=== PATIENT | female | born 1970 | race American Indian/Alaskan Native ===

== ENCOUNTER 2019-08-21 20:20 | Emergency (ER) | payer OTHER ==
--- NOTE | 2019-08-21 20:46 | Event Note ---
ED Screening Note Date of service: 08/21/19 Time: 20:42 ED Screening Note: 49 y/o female comes piece of wood in right idex finger. Has IUD This initial assessment/diagnostic orders/clinical plan/treatment(s) is/are subject to change based on patients health status, clinical progression and re- assessment by fellow clinical providers in the ED. Further treatment and workup at subsequent clinical providers discretion. Patient/guardian urged not to elope from the ED as their condition may be serious if not clinically assessed and managed. Initial orders include:
--- NOTE | 2019-08-21 21:13 | XRay Report ---
Right fingers 3 views INDICATION: Finger pain. IMPRESSION: No fracture or subluxation is identified. No dislocation. Signer Name: Jose Maria Lyles MD Signed: 08/21/2019 9:08 PM Workstation Name: [id number]
[2019-08-21] MEDS ORDERED: TETANUS,DIPH,PERTUSS(ACELL) VACCINE 0.5 ML SYRINGE IM ONE (21:35)
[2019-08-21] MEDS ORDERED: IBUPROFEN 600 MG TAB PO ONE (21:35)
[2019-08-21] MEDS ORDERED: LIDOCAINE-MPF (1%) 10 MG/1 ML VIAL 5 ML INFILTRATI ONE (21:35)
--- NOTE | 2019-08-21 22:58 | Emergency Department Report ---
ED General Adult HPI - General Chief complaint: Skin/Abscess/Foreign Body Stated complaint: LARGE SPLINTER RIGHT INDEX FINGER Time Seen by Provider: 08/21/19 20:40 Source: patient Mode of arrival: Ambulatory Limitations: No Limitations - History of Present Illness Initial comments: Patient is a 49-year-old -[place] female with no past medical history except GERD who presents to the ED with complaint of acute onset persistent painful right distal index finger due to a puncture wound and a foreign body embedded in the distal right index finger for the last 1 hour after pieces of a wooden chair she was sanding puncture the right index finger and a piece of the wooden chip got stuck and embedded in the distal right index finger on palmar side. Patient admits that she is not updated her tetanus vaccinations. Patient denies numbness or tingling and weakness of right index finger. MD Complaint: foreign body in finger; puncture wound -: Sudden, hour(s) (1) Location: right, upper extremity (right index finger) Radiation: non-radiation Severity scale (0 -10): 5 Quality: aching, sharp, constant Consistency: constant Improves with: none Worsens with: none Associated Symptoms: denies other symptoms. denies: confusion, chest pain, diaphoresis, fever/chills, headaches, loss of appetite, seizure, syncope, weakness, other Treatments Prior to Arrival: none - Related Data Previous Rx's Medication Instructions Recorded Last Taken Type Sulfamethoxazole/Trimethoprim 1 each PO Q12H #20 tablet 08/21/19 Unknown Rx [Bactrim DS TAB] Allergies Allergy/AdvReac Type Severity Reaction Status Date / Time acetaminophen [From Percocet] AdvReac Nausea Verified 08/21/19 20:43 atropine [From ] AdvReac Itching Verified 08/21/19 20:43 belladonna alkaloids AdvReac Itching Verified 08/21/19 20:43 hyoscyamine [From ] AdvReac Itching Verified 08/21/19 20:43 oxycodone [From Percocet] AdvReac Nausea Verified 08/21/19 20:43 phenobarbital [From ] AdvReac Itching Verified 08/21/19 20:43 scopolamine [From ] AdvReac Itching Verified 08/21/19 20:43 ED Review of Systems ROS: Stated complaint: LARGE SPLINTER RIGHT INDEX FINGER Other details as noted in HPI Constitutional: denies: chills, fever Eyes: denies: eye pain, eye discharge, vision change ENT: denies: ear pain, throat pain Respiratory: denies: cough, shortness of breath, wheezing Cardiovascular: denies: chest pain, palpitations Endocrine: no symptoms reported Gastrointestinal: denies: abdominal pain, nausea, diarrhea Genitourinary: denies: urgency, dysuria, discharge Musculoskeletal: arthralgia (right index finger pain due to puncture wound and foreign body stuck in tissue), myalgia. denies: back pain, joint swelling Skin: other (Right index finger puncture wound with foreign body embedded in tissue). denies: rash, lesions Neurological: denies: headache, weakness, paresthesias Psychiatric: denies: anxiety, depression Hematological/Lymphatic: denies: easy bleeding, easy bruising ED Past Medical Hx - Surgical History Additional Surgical History: jaw - Social History Smoking Status: Never Smoker - Medications Home Medications: Home Medications Medication Instructions Recorded Confirmed Last Taken Type Sulfamethoxazole/Trimethoprim 1 each PO Q12H #20 tablet 08/21/19 Unknown Rx [Bactrim DS TAB] ED Physical Exam - General Limitations: No Limitations General appearance: alert, in no apparent distress - Head Head exam: Present: atraumatic, normocephalic, normal inspection - Eye Eye exam: Present: normal appearance, PERRL, EOMI Pupils: Present: normal accommodation - ENT ENT exam: Present: normal exam, normal orophraynx, mucous membranes moist, TM's normal bilaterally, normal external ear exam - Neck Neck exam: Present: normal inspection, full ROM - Respiratory Respiratory exam: Present: normal lung sounds bilaterally. Absent: respiratory distress, wheezes - Cardiovascular Cardiovascular Exam: Present: regular rate, normal rhythm, normal heart sounds. Absent: systolic murmur, diastolic murmur, rubs, gallop - GI/Abdominal GI/Abdominal exam: Present: soft, normal bowel sounds. Absent: tenderness, guarding - Extremities Exam Extremities exam: Present: normal inspection, full ROM, tenderness (palpable severe distal right index finger tenderness due to a puncture wound with a foreign body embedded in the tissues), normal capillary refill. Absent: pedal edema, joint swelling, calf tenderness - Back Exam Back exam: Present: normal inspection, full ROM. Absent: tenderness, muscle spasm, paraspinal tenderness - Neurological Exam Neurological exam: Present: alert, oriented X3, CN II-XII intact, normal gait, reflexes normal - Psychiatric Psychiatric exam: Present: normal affect, normal mood - Skin Skin exam: Present: warm, dry, intact, normal color, other (distal right index finger puncture wound on the palmar side due to an embedded foreign body). Absent: rash ED Course Vital Signs 08/21/19 22:39 Respiratory 16 Rate - Reevaluation(s) Reevaluation #1: 08/21/19 22:59 This 49-year-old female who presented to the ED with painful distal right index finger after a foreign body puncture and the right index finger on the palmar side and got embedded in the tissues. In the ED, patient is alert and oriented 3 and is not in distress. Patient was treated for pain and also received tetanus booster vaccinations. The right index finger x-ray shows no acute fractures or subluxations. The foreign body was successfully removed from the distal right index finger puncture wound after the right index finger was anesthetized with lidocaine 1% solution. Patient tolerated the procedure well. Patient was discharged home on antibiotics prophylactically and advised to follow-up with her primary care physician in 7-10 days for reevaluation or return to the ED immediately if symptoms get worse. ED Medical Decision Making - Radiology Data Radiology results: report reviewed, image reviewed Right index finger x-ray shows no acute fractures or subluxations. - Medical Decision Making This 49-year-old female who presented to the ED with painful distal right index finger after a foreign body puncture and the right index finger on the palmar side and got embedded in the tissues. In the ED, patient is alert and oriented 3 and is not in distress. Patient was treated for pain and also received tetanus booster vaccinations. The right index finger x-ray shows no acute fractures or subluxations. The foreign body was successfully removed from the distal right index finger puncture wound after the right index finger was anesthetized with lidocaine 1% solution. Patient tolerated the procedure well. Patient was discharged home on antibiotics prophylactically and advised to follow-up with her primary care physician in 7-10 days for reevaluation or return to the ED immediately if symptoms get worse. - Differential Diagnosis puncture wound; foreign body in finger; cellulitis Critical care attestation.: If time is entered above; I have spent that time in minutes in the direct care of this critically ill patient, excluding procedure time. ED Disposition Clinical Impression: Puncture wound of right index finger with foreign body without damage to nail Qualifiers: Encounter type: initial encounter Qualified Code(s): S61.240A - Puncture wound with foreign body of right index finger without damage to nail, initial encounter Disposition: TO HOME OR SELFCARE Is pt being admited?: No Does the pt Need Aspirin: No Condition: Stable Instructions: Puncture Wound (ED), Soft Tissue Foreign Body (ED) Additional Instructions: Take medication with food, drink plenty of fluids and follow-up with your primary care physician in 7-10 days for reevaluation. Return to the ED immediately if symptoms get worse. Prescriptions: Sulfamethoxazole/Trimethoprim [Bactrim DS TAB] 1 each PO Q12H #20 tablet Referrals: PRIMARY CARE, [Primary Care Provider] - 3-5 Days Time of Disposition: 22:54 Print Language: ROMANIAN
[2019-08-21 23:12] VITALS: BP 122/86
== END 2019-08-21 23:13 | disposition home or self-care (01) ==
LOC: ED 20:20
DX: S61.240A Puncture wound with foreign body of right index finger without damage to nail, initial encounter (principal); W45.8XXA Other foreign body or object entering through skin, initial encounter; Y93.89 Activity, other specified; Y92.89 Other specified places as the place of occurrence of the external cause; Y99.8 Other external cause status
CPT/HCPCS: 90471; 90715

== ENCOUNTER 2019-11-21 14:18 | Outpatient (CLI) | payer OTHER | END 2019-11-21 14:19 | disposition home or self-care (01) | LOC: LABHHL 14:18 | PROVIDERS: ATTEND Surgery | DX: N63.23 Unspecified lump in the left breast, lower outer quadrant (principal) | CPT/HCPCS: 88305; 88341; 88342 ==

== ENCOUNTER 2019-12-22 06:13 | Day surgery (SDC) | payer OTHER ==
[~2019-12-22 06:13] MED LIST: ceFAZolin/Water 2 GM/20 ML 2 GM/20 ML SYRINGE IV NR
[2019-12-22] MEDS ORDERED: LACTATED RINGERS 1,000 ML ONE (07:47)
[2019-12-22] MEDS ORDERED: BUPIVACAINE/PF (0.25%) 2.5 MG/ML 30 ML VIAL INFILTRATI ONE ×2 (08:26→09:44)
[2019-12-22] MEDS ORDERED: LIDOCAINE (1%) 10 MG/1 ML VIAL 20 ML MDV ONE (08:26)
[2019-12-22] MEDS ORDERED: KETOROLAC 30 MG/1 ML INJ IV PRN (08:35)
[2019-12-22] MEDS ORDERED: fentaNYL 100 MCG/2 ML INJ IV PRN (08:35)
[2019-12-22] MEDS ORDERED: ONDANSETRON 4 MG/2 ML INJ IV PRN (08:35)
[2019-12-22] MEDS ORDERED: LACTATED RINGERS 1,000 ML IV SCH (09:00)
[2019-12-22] MEDS ORDERED: HYDROmorphone 1 MG/1 ML INJ ONE (09:07)
[2019-12-22] MEDS ORDERED: propofoL 200 MG/20 ML VIAL IV ONE (09:07)
--- NOTE | 2019-12-22 09:07 | Anesthesia Day of Surgery ---
Anesthesia Day of Surgery - Day of Surgery Patient Examined: Yes Patient H&P Reviewed: Yes Patient is NPO: Yes
--- NOTE | 2019-12-22 09:09 | Anesthesia Consultation ---
Anesthesia Consult and Med Hx Date of service: 12/22/19 (h/o jaw surgery) - Airway Anesthetic Teeth Evaluation: Good ROM Head & Neck: Adequate Mental/Hyoid Distance: Adequate Mallampati Class: Class III Intubation Access Assessment: Possibly Difficult - Pulmonary Exam CTA: Yes - Cardiac Exam Cardiac Exam: RRR - Pre-Operative Health Status ASA Pre-Surgery Classification: ASA2 Proposed Anesthetic Plan: General - Pulmonary Hx Smoking: No Hx Sleep Apnea: (NOT DIAGNOSED;) - Central Nervous System Hx Back Pain: Yes (HERNIATED DISC (LUMBAR)) Hx Psychiatric Problems: Yes - Other Systems Hx Alcohol Use: Yes (OCCA) Hx Substance Use: No Hx Cancer: No Hx Obesity: Yes (BMI 32)
--- NOTE | 2019-12-22 09:13 | Operative Report ---
Operative Report Operative Report: Operative Report: Date of Service: December 22, 2019 Preoperative diagnosis: Left breast mass of the lower outer quadrant Postoperative diagnosis: Same Procedure: Left breast mass excisional biopsy of the lower outer quadrant Surgeon: Melina Ware M.D. Findings: Left breast mobile mass at 3:30 position 7 cm FN with excisional biopsy performed Complications: None Drains: None Estimated blood loss: Minimal Disposition: PACU in good condition Indication for operative procedure: This is a 49-year-old lady with left breast mass at the 3:30 position 7 cm FN with recommendations for excisional biopsy for a definitive diagnosis to rule out malignancy and given palpable size and appearance. Left breast mass recently biopsied with findings of probable PASH. Patient wanted to proceed with left breast mass excisional biopsy as well. Patient wished to proceed with the above procedure. The patient was procedure in detail: The patient was taken to the operating room and was laid supine. General anesthesia was administered. The left breast mobile mass palpable at the 3:30 position 7 cm FN. The left breast was prepped and draped in the normal sterile operative fashion. Timeout was performed. A breast incision was made around the lateral NAC with a 15 blade knife with dissection taken down to the subcutaneous tissues. The mass was encountered and was dissected free with the aid of the Bovie cautery. The specimen was sent to sent to pathology. Hemostasis was then obtained using the Bovie cautery. Breast cavity was anesthesized with 1% lidocaine and quarter percent marcaine. The breast cavity was irrigated and suctioned. The deep breast tissues were approxim ated and closed using interrupted 3-0 Vicryl and skin brought together and closed using a running 4-0 Monocryl followed by dermabond. She tolerated surgery very well and was awakened from anesthesia without any complication and transported to PACU in good condition.
[2019-12-22] MEDS ORDERED: SODIUM CHLORIDE 0.9% IRR 1,500 ML BOTTLE IR ONE (09:44)
[2019-12-22] MEDS ORDERED: LIDOCAINE (1%) 10 MG/1 ML VIAL 20 ML MDV INFILTRATI ONE (09:45)
[2019-12-22] MEDS ORDERED: PHENYLEPHRINE/NS 1,000 MCG/10 ML SYRINGE (OR USE) IV ONE (09:47)
[2019-12-22] MEDS ORDERED: LIDOCAINE MPF (2%) 20 MG/1 ML VIAL 5 ML ONE (09:47)
[2019-12-22] MEDS ORDERED: ONDANSETRON 4 MG/2 ML INJ ONE (10:30)
--- NOTE | 2019-12-22 10:31 | Short Stay Summary ---
Short Stay Documentation Date of service: 12/22/19 - History H&P: obtained from office - Allergies and Medications Current Medications: Allergies acetaminophen [From Percocet] Adverse Reaction (Verified 12/15/19 16:50) Nausea atropine [From ] Adverse Reaction (Verified 12/15/19 16:50) Itching belladonna alkaloids Adverse Reaction (Verified 12/15/19 16:50) Itching hyoscyamine [From ] Adverse Reaction (Verified 12/15/19 16:50) Itching oxycodone [From Percocet] Adverse Reaction (Verified 12/15/19 16:50) Nausea phenobarbital [From ] Adverse Reaction (Verified 12/15/19 16:50) Itching scopolamine [From ] Adverse Reaction (Verified 12/15/19 16:50) Itching Home Medications Medication Instructions Recorded Confirmed Last Taken Type Ferrous Sulfate [Slow Release Iron 250 mg PO DAILY 12/15/19 12/22/19 12/15/19 09:00 History 250 MG] Magnesium Amino Acid Chelate 100 mg PO DAILY 12/15/19 12/22/19 12/15/19 09:00 History [Magnesium] Naproxen Sodium [Aleve] 220 mg PO PRN PRN 12/15/19 12/22/19 12/15/19 09:00 History RX: Cod Liver Oil 1 each PO DAILY 12/15/19 12/22/19 12/15/19 09:00 History RX: Omeprazole 40 mg PO DAILY 12/15/19 12/22/19 12/21/19 09:00 History RX: Potassium 99 mg PO DAILY 12/15/19 12/22/19 12/15/19 09:00 History Turmeric [Turmeric Root] 25 gm MC DAILY 12/15/19 12/22/19 11/17/19 09:00 History diphenhydrAMINE [Benadryl CAP] 25 mg PO QHS PRN 12/15/19 12/22/19 12/15/19 09:00 History RX: Ibuprofen [Motrin 800 MG tab] 800 mg PO Q8HR PRN #12 tablet 12/22/19 Unknown Rx Active Medications Fentanyl (Sublimaze) 50 mcg IV Q5MIN PRN PRN Reason: Pain , Severe (7-10) Stop: 12/22/19 23:00 Cefazolin Sodium (Ancef/Sterile Water 2 Gm/20 Ml) 2 gm in 20 mls @ 80 mls/hr IV PREOP NR; Protocol Stop: 12/22/19 23:55 Lactated Ringer's (Lactated Ringers) 1,000 mls @ 100 mls/hr IV DIRECT TANA Last Admin: 12/22/19 08:00 Dose: 100 mls/hr Documented by: Ketorolac Tromethamine (Toradol) 30 mg IV ONCE PRN PRN Reason: Pain, Moderate (4-6) Stop: 12/22/19 16:00 Ondansetron HCl (Zofran) 4 mg IV ONCE PRN PRN Reason: Nausea And Vomiting Stop: 12/22/19 16:00 - Brief post op/procedure progress note Date of procedure: 12/22/19 Pre-op diagnosis: left breast mass Post-op diagnosis: same Procedure: left breast mass excisional biopsy Anesthesia: GETA Findings: left breast maass at 3:30 position 7 cm FN Surgeon: BIN REINOSO Estimated blood loss: minimal Pathology: list (left breast mass) Specimen disposition: to lab Condition: stable - Disposition Condition at discharge: Good Disposition: DC-01 TO HOME OR SELFCARE Short Stay Discharge Plan Activity: other (no heavy lifting) Diet: regular Wound: keep clean and dry (may shower in 48 hours; wear breast binder) Follow up with: BLANCA MORELOS DO [Primary Care Provider] - 7 Days BIN REINOSO MD [Staff Physician] - 7 Days Prescriptions: RX: Ibuprofen [Motrin 800 MG tab] 800 mg PO Q8HR PRN #12 tablet PRN Reason: Pain , Severe (7-10)
[2019-12-22 11:23] VITALS: BP 133/51
--- NOTE | 2019-12-22 23:01 | Post Anesthesia Evaluation ---
- Post Anesthesia Evaluation Patient Participated: Yes Airway Patent: Yes Stable Respiratory Function: Yes Nausea/Vomiting: No Temp > 96.8F: Yes Pain Manageable: Yes Adequeate Hydration: Yes Anesthesia Complications: No Block Receding Appropriately: Not Applicable Patient on Ventilator: No
== END 2019-12-22 11:55 | disposition home or self-care (01) ==
LOC: OR 06:13
PROVIDERS: ATTEND Surgery
DX: N63.23 Unspecified lump in the left breast, lower outer quadrant (principal); E66.9 Obesity, unspecified; E78.00 Pure hypercholesterolemia, unspecified; K21.9 Gastro-esophageal reflux disease without esophagitis; Z68.32 Body mass index [BMI] 32.0-32.9, adult; Z88.8 Allergy status to other drugs, medicaments and biological substances; Z79.899 Other long term (current) drug therapy; Z98.890 Other specified postprocedural states; Z80.3 Family history of malignant neoplasm of breast; Z72.89 Other problems related to lifestyle
CPT/HCPCS: 19120; 36415; 82962; 84132; 88305; J0690; J1170; J1885; J2370; J2405; J2704; J7120; 88307

== ENCOUNTER 2020-08-18 14:04 | Outpatient (CLI) | payer OTHER ==
--- NOTE | 2020-08-18 16:59 | Magnetic Resonance Report ---
Bilateral breast MRI with and without contrast. History: History of left breast mass with biopsy and excision of mass, follow-up Procedure: Axial T1 and T2-weighted fat-sat images were obtained precontrast. 18 cc MultiHance was i njected intravenously and serial axial T1-weighted images with fat saturation were obtained postcontr ast. 3-D MIP projections, Kinetic analysis and subtraction imaging was utilized to evaluate. A ActivityHero 8 channel breast coil was utilized for image acquisition. Comparison: Bilateral mammogram 07/01/2020, left mammogram postbiopsy 12/04/2019 Findings: Background level of enhancement is mild. No suspicious axillary or clavicular nodes are identified. No abnormal bone marrow signal is seen. No significant chest wall enhancement is noted. Right breast: No suspicious lesions are seen. Left breast: Small lymph node is noted laterally as is seen mammographically. No suspicious areas of enhancement are seen. Impression: No suspicious abnormalities are noted BIRADS: 2: Benign Signer Name: Floyd Martin MD Signed: 08/18/2020 4:54 PM Workstation Name: [id number]
== END 2020-08-18 14:05 | disposition home or self-care (01) ==
LOC: SPVIMAG 14:04
PROVIDERS: ATTEND Surgery
DX: D24.2 Benign neoplasm of left breast (principal); R59.0 Localized enlarged lymph nodes
CPT/HCPCS: A9577; C8908; 77049